=== PATIENT | female | born 1965 | race Caucasian/White ===

== ENCOUNTER → 2019-03-30 | Outpatient (CLI) | payer OTHER, SELFPAY ==
--- NOTE | 2019-03-30 14:52 | VDLE_ITS ---
Reason For Study: Acute embolism RIGHT LEFT GSV is normal. GSV is normal. CFV is compressible, spontaneous, phasic, CFV is compressible, spontaneous, phasic, competent and demonstrates normal competent, and demonstrates normal augmentation. augmentation. FV is compressible, spontaneous, phasic, FV is compressible, spontaneous, phasic, competent and demonstrates normal competent and demonstrates normal augmentation. augmentation. POP V is compressible, spontaneous, phasic, POP V is compressible, spontaneous, phasic, competent and demonstrates normal competent and demonstrates normal augmentation. augmentation. T/P Trunk is compressible. T/P Trunk is compressible. PTV is compressible. PTV is compressible. RT PerV is compressible. LT PerV is compressible. Procedure Exam performed in department. A preliminary report was called and/or faxed to Pedro. Interpretation Summary No evidence for acute deep venous thrombosis bilateral lower extremities with patent and compressible bilateral great saphenous veins. Ordering Physician: Carl Vasquez Referring Physician: MIRA Marinelli M.D. Performed By: Anjali Archibald RVT
== END | disposition home or self-care (01) ==
LOC: CVS 14:51
PROVIDERS: Family Provider Family Medicine; PCP Family Medicine; Referring Provider Dermatology; Visit Provider Dermatology
DX: I82.409 Acute embolism and thrombosis of unspecified deep veins of unspecified lower extremity (principal)
CPT/HCPCS: 93970

== ENCOUNTER → 2022-02-08 | Outpatient (CLI) | payer BC, SELFPAY ==
--- NOTE | 2022-02-08 07:51 | CT_ITS ---
STUDY: CTA HEAD AND NECK WITH CONTRAST REASON FOR EXAM: Female, 56 years old. PULSATILE TINNITUS RADIATION DOSAGE (If Supplied By Facility): CTDIvol = ( 26 ) mGy, DLP = ( 1299.5 ) mGycm TECHNIQUE: CT angiography was performed with a multi-detector CT scanner. Data acquisition was obtained from the skull base through the vertex following intravenous administration of IV 100mL [id number]-370. MIP images were reconstructed from the axial data set. Post-processing of the angiographic images was performed, with multiplanar reformation and 3D reconstruction. Individualized dose optimization techniques were used for this CT. COMPARISON: No relevant priors. FINDINGS: Normal bilateral petrous carotid arteries. Normal right cavernous carotid artery with a normal supraclinoid bifurcation. Normal left cavernous carotid artery with a normal supraclinoid bifurcation. Normal right A1 segments of the anterior cerebral artery. Normal left A1 segments of the anterior cerebral artery. Normal intact anterior communicating artery (ACOM). Normal bilateral A2 segments of the anterior cerebral arteries. Normal right M1 and M2 segments of the middle cerebral arteries, with a normal M1 bifurcation. Normal left M1 and M2 segments of the middle cerebral arteries, with a normal M1 bifurcation. Normal right posterior communicating artery (PCOM). Normal left posterior communicating artery (PCOM). Normal bilateral vertebral arteries. Normal basilar artery with a normal basilar bifurcation. The visualized bilateral superior cerebellar (SCA) arteries are normal. Normal bilateral P1, P2 and visualized P3 segments of the posterior cerebral arteries. There is no demonstrated aneurysm of the [place]. There is no demonstrated abnormality of the visualized brain. Heterogeneous appearance of the left lobe of the thyroid with hypoechoic nodules. Small hypoechoic nodules are also seen in the right lobe. AORTIC ARCH: Normal visualized aortic arch. Normal origins of the brachiocephalic, left common carotid, and left subclavian arteries. RIGHT CAROTID ARTERIES: Normal right common carotid artery (CCA). Normal right common carotid bulb. Normal origin of the right internal carotid (ICA) artery without a hemodynamically significant stenosis. Normal visualized cervical portion of the right internal carotid artery. Normal origin of the right external carotid artery (ECA). LEFT CAROTID ARTERIES: Normal left common carotid artery (CCA). Normal left common carotid bulb. Normal origin of the left internal carotid (ICA) artery without a hemodynamically significant stenosis. Normal visualized cervical portion of the left internal carotid artery. Normal origin of the left external carotid artery (ECA). VERTEBRAL ARTERIES: Normal bilateral vertebral arteries. CT/CTA Head AND Neck W/ Contrast IMPRESSION: Normal CTA Head and neck with contrast. Electronically Signed: Pelon Martin MD at 9:00 EDT ,
== END | disposition home or self-care (01) ==
PROVIDERS: PCP Family Medicine; Referring Provider Otolaryngology; Visit Provider Otolaryngology
DX: H93.A2 Pulsatile tinnitus, left ear (principal)
CPT/HCPCS: 70496; 70498; Q9967

== ENCOUNTER 2022-07-14 13:27 | Emergency (ER) | payer BC, SELFPAY ==
[2022-07-14 13:28] VITALS: BP 135/67; PULSE 100; RESP 18; TEMP 36.3; O2SAT 100; BMI 32.0
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
--- NOTE | 2022-07-14 15:24 | CT_ITS ---
EXAM: CT CERVICAL SPINE WITHOUT INTRAVENOUS CONTRAST CLINICAL INDICATION: Trauma TECHNIQUE: Helically acquired images were obtained of the cervical spine without intravenous contrast. 2D reformatted images were reviewed. This CT exam was performed using one or more of the following dose reduction techniques: automated exposure control, adjustment of the mA and/or kV according to patient size, and/or use of iterative reconstruction technique. This report was created using [employer] report generation technology. COMPARISON: None. FINDINGS: VERTEBRAE: Unremarkable. No fracture. No traumatic subluxation. No discrete lytic or blastic abnormality. Normal alignment. Normal craniocervical junction and cervicothoracic junction. DISCS/SPINAL CANAL/NEURAL FORAMINA: There is disc space narrowing at C5-6. SOFT TISSUES: Unremarkable. No prevertebral soft tissue swelling. LYMPH NODES: Unremarkable. No cervical adenopathy. LUNG APICES: Unremarkable as visualized. Clear. CT/Spine Cervical without Contras IMPRESSION: No acute findings in the cervical spine. Electronically Signed: Wilbert Roblero MD at 16:20 EST ,
--- NOTE | 2022-07-14 15:24 | CT_ITS ---
EXAM: CT HEAD WITHOUT INTRAVENOUS CONTRAST CLINICAL INDICATION: Trauma TECHNIQUE: Multiple axial images were obtained of the head without intravenous contrast. This CT exam was performed using one or more of the following dose reduction techniques: automated exposure control, adjustment of the mA and/or kV according to patient size, and/or use of iterative reconstruction technique. This report was created using [employer] report [employer] technology. COMPARISON: None. FINDINGS: BRAIN AND EXTRA-AXIAL SPACES: Unremarkable. No intra- or extra-axial hemorrhage. No evidence of acute infarct. No intracranial mass or mass effect. There is preservation of the miramontes/white matter interface. Posterior fossa structures are unremarkable. Ventricles are appropriate for age. No hydrocephalus. Basal cisterns are patent. BONES/JOINTS: Unremarkable. No discrete lytic or blastic abnormalities. SINUSES: Unremarkable as visualized. Clear. MASTOID AIR CELLS: Unremarkable. Clear. ORBITS: Visualized globes, extraocular muscles, optic nerves and retrobulbar fat appear unremarkable. CT/Brain/Head without Contrast IMPRESSION: Negative head/brain CT without intravenous contrast. Electronically Signed: Wilbert Roblero MD at 16:20 [facility] ,
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
--- NOTE | 2022-07-14 15:29 | NURSING ---
NO OLD EKGS
[2022-07-14 15:51] LABS: Absolute Lymphocyte Count 1.47 X10^3/uL (0.83-4.51); Absolute Neutrophil Count 5.5 X10^3/uL (2.0-7.7); Basophil# 0.04 X10^3/uL; Basophil% 0.5 % (0-1); Eosinophil# 0.06 X10^3/uL; Eosinophils% 0.8 % (0-5); Hematocrit 40.3 % (37-47); Hemoglobin 13.1 g/dL (12.0-15.0); Lymphocyte # 1.47 X10^3/ul (0.83-4.51); Lymphocyte % 18.8 % (19-41); Mean Corp Hgb Conc 32.5 g/dL (32-36); Mean Corpuscular Hgb 29.6 pg (27.0-32.0); Mean Corpuscular Volume 91.2 fL (81-99); Monocyte# 0.75 X10^3/uL; Monocyte% 9.6 % (0-10); NRBC Flagged by Analyzer 0 % (0-5); Neutrophil # 5.47 X10^3/uL (2.7-7.7); Neutrophil % 69.8 % (47-70); Platelet Count 264 K/mm3 (150-450); RBC Distribution Width CV 12.6 % (11.6-14.6); RBC Distribution Width SD 41.6 fl (35.1-43.9); Red Blood Count 4.42 M/mm3 (4.2-5.4); White Blood Count 7.8 K/mm3 (4.4-11.0)
[2022-07-14 16:07] VITALS: BP 124/76; PULSE 93; RESP 12; O2SAT 100
[2022-07-14 16:10] LABS: Anion Gap 2 (5-15); BUN 13 mg/dL (7-18); BUN/Creat Ratio 15.2 RATIO (10-20); Chloride 108 mmol/L (98-107); Creatinine, Serum 0.85 mg/dL (0.55-1.02); EST Glomerular Filtration Rate 73 mL/min (>60); Est Glom Filt Rate - Afr Amer 88 mL/min (>60); Estimated Creatinine Clearance 57.06 ml/min; Glucose 124 mg/dL (74-106); Potassium 3.6 mmol/L (3.5-5.1); Sodium Level 141 mmol/L (136-145); Troponin-I HS 8 pg/mL (3.0-54.0)
== END 2022-07-14 17:09 | disposition home or self-care (01) ==
PROVIDERS: Emergency Provider Student in an Organized Health Care Education/Training Program; PCP Family Medicine; Visit Provider Student in an Organized Health Care Education/Training Program
DX: S16.1XXA Strain of muscle, fascia and tendon at neck level, initial encounter (principal); S20.20XA Contusion of thorax, unspecified, initial encounter; V43.52XA Car driver injured in collision with other type car in traffic accident, initial encounter
CPT/HCPCS: 70450; 71250; 72125; 80048; 84484; 85025; 93005; 99285

== ENCOUNTER 2024-12-15 08:12 | Day surgery (SDC) | payer OTHER, SELFPAY ==
--- NOTE | 2024-12-09 13:16 | PAT.ANE_ITS ---
Pre-Assessment Diagnosis/Proposed Procedure Planned Operative Procedure(s): Exam Under Anesthesia and flexible sigmoidoscopy with biopsy Anesthesia History Anesthesia History - corporate analyst: Anesthesia History - corporate analyst Hx Hospitalization No 12/09/24 13:09 Any Problems With Anesthesia Yes: HARD TO WAKE AFTER 12/09/24 13:09 HYSTER Cholinesterase deficiency No 12/09/24 13:09 You/Your Family Experience No 12/09/24 13:09 fever (hyperthermia) with Relationship Recent Exposure to Contagious Disease Does patient have nerve No 12/09/24 13:09 stimulator Patient instructed to have device shut off --Does patient have Pacemaker or ICD? When Was Last Pacemaker Check QUESTION #4 FULL TEXT: You/Your Family Experience fever (hyperthermia) with Anesthesia Last Oral Intake Last Oral intake: Last Oral Intake NPO since Meds taken in AM with sips of water? Meds patient instructed to take am of surgery PONV PONV - corporate analyst: PONV - corporate analyst Female Yes 12/09/24 13:09 HX of Motion Sickness No 12/09/24 13:09 HX of N/V After Surgery No 12/09/24 13:09 Non-Smoker Yes 12/09/24 13:09 Duration of Surgery greater No 12/09/24 13:09 than 60 minutes Number of Risk Factors 2 12/09/24 13:09 PONV Score Moderate Risk 12/09/24 13:09 Height & Weight Height & Weight: Anesthesia: Height & Weight Height 5 ft 2 in 12/08/24 08:09 Respiratory Assessment Respiratory Assessment - corporate analyst: Respiratory Tract Infection Hx - corporate analyst Hx Respiratory Tract Infection No 12/09/24 13:09 STOP Sleep Apnea STOP Sleep Apnea - corporate analyst: STOP Sleep Apnea - corporate analyst Hx Hypertension No 12/09/24 13:09 Hx Sleep Apnea No 12/09/24 13:09 CPAP BIPAP Do you snore loudly (louder No 12/09/24 13:09 than talking or can be heard Do you often feel tired/ No 12/09/24 13:09 fatigued/ sleepy during daytime? Has anyone observed you stop No 12/09/24 13:09 breathing during sleep? STOP Results Negative 12/09/24 13:09 QUESTION #5 FULL TEXT : Do you snore loudly (louder than talking or can be heard through closed doors)? Tobacco Use History Tobacco Use History - corporate analyst: Tobacco Use History - corporate analyst Tobacco Use Smoking Status Never smoker 12/09/24 13:09 Hx Tobacco Use No 12/09/24 13:09 Years Smoking Packs Smoked per Day Smoking Cessation Date was within the last 15 years Hx Smoking Cessation Date Hx Smoking Cessation Counseling Hematologic Medial History Hematologic Hx - corporate analyst: Hematologic Medical Hx - education dean Hx of Blood Transfusion No 12/09/24 13:09 Hx of Transfusion in last 3 No 12/09/24 13:09 Months Date of Last Transfusion (if within last 3 months) Ever experience any problems No 12/09/24 13:09 with transfusion(s)? Specify any problems Hx of Preganancy in last 3 No 12/09/24 13:09 Months Nurse Filling Out Transfusion VCHRISTIN 12/09/24 13:09 & Questions: Date: 12/09/24 12/09/24 13:09 Time: 13:10 12/09/24 13:09 Patient unable to answer at this time (ie. 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 boulardii)) cholecalciferol (vitamin D3) 50 50 mcg PO QDAY 5 Unknown History mcg (2,000 unit) capsule clindamycin 1 %-benzoyl peroxide 5 1 applic topical QH S 12/08/24 Unknown History % topical gel with pump clobetasol 0.05 % topical ointment 1 applic topical BI D 12/08/24 Unknown History estradiol 0.01% (0.1 mg/gram) 1 appful vaginal .2-3 TI MES WEEKLY 12/08/24 Unknown History vaginal cream fluticasone propionate 50 1 spray intranasal DAILY Unknown History mcg/actuation nasal spray,suspension sumatriptan succinate 50 mg tablet 50 mg PO PRN PRN mi graine 12/08/24 Unknown History Allergy/AdvReac Type Severity Reaction Status Date / Time doxycycline Allergy Severe ITCHING Verified 12/09/24 13:00 minocycline Allergy Severe ITCHING Verified 12/09/24 13:00 Sulfa (Sulfonamide Allergy Rash Verified 12/09/24 12:59 Antibiotics) tetracycline AdvReac Itching Verified 12/09/24 12:59 Family History Mother Family history of blood clots Dementia Father Myocardial infarction, Onset Age: 78 Heart disease Hypertension Bowel disease, inflammatory Grandmother Breast cancer, Onset Age: 50 Grandfather Myocardial infarction Surgical History (Updated 12/09/24 @ 13:09 by Mikayla Hinkle) Hx of surgical procedure Hx of esophagogastroduodenoscopy Hx of wisdom tooth extraction Hx of hysterectomy History of bladder surgery Hx of colonoscopy Social History Smoking Status: Never smoker alcohol intake: never substance use type: does not use Audit: Pertinent Findings Pertinent Findings EKG Perinent findings: 07/14/2022. Normal sinus rhythm 88 bpm. Artifacts noted. Recommendation Anesthesia Recommendation Anesthesia recommendation: OPTIMIZED for anesthesia
[2024-12-15] VITALS (10 sets, daily range): BP systolic 115–141; BP diastolic 66–86; PULSE 72–95; RESP 16; TEMP 36.6–37.2; O2SAT 98–100; BMI 26.8
[2024-12-15] MEDS: Lactated Ringers 1,000 ML 15 ML IV (09:00)
--- NOTE | 2024-12-15 09:49 | PRE.ANES_ITS ---
ASA Classification* ASA Classification ASA Classification: 2 Assessment & Plan Anesthesia* Anesthesia Assessment Anesthesia Assessment: Discussed sedation and/or anesthesia options, risks, benefits, and alternatives with patient/parents/legal guardian/POA. Questions invited. The patient/parents/legal guardian/POA seems to understand and agrees to proceed with anesthesia plan. Reviewed the physical assessment, medical history, allergy history and patient home medications list prior to surgery/procedure/anesthetic and documented any changes. Performed airway and anesthesia risk assessments. Anesthesia Type Anesthesia Type: General History Source History Obtained from:: Patient and Chart Anesthesia Focused Assessment* Temperature: 98.9 F Pulse Rate: 88 Blood Pressure: 117/80 Respiratory Rate: 16 Pulse Ox: 100 Oxygen Delivery Method: Room Air Airway Assessment Mouth opens: >3 cm Mallampati Score: III Teeth Condition: Caps/Crowns (Patient has several crowns and an implant. They are all tight.) Neck Range of motion (ROM): Limited ROM (Slight decrease in extension.) Focused Labs Anesthesia Preop lab: CBC WBC 7.8 K/mm3 (4.4-11.0) 07/14/22 15:40 07/14/22 RBC 4.42 M/mm3 (4.2-5.4) 07/14/22 15:40 07/14/22 Hgb 13.1 g/dL (12.0-15.0) 07/14/22 15:40 07/14/22 Hct 40.3 % (37-47) 07/14/22 15:40 07/14/22 Plt Count 264 K/mm3 (150-450) 07/14/22 15:40 07/14/22 CHEMISTRY Potassium 3.6 mmol/L (3.5-5.1) 07/14/22 15:40 07/14/22 Sodium 141 mmol/L (136-145) 07/14/22 15:40 07/14/22 BUN 13 mg/dL (7-18) 07/14/22 15:40 07/14/22 Creatinine 0.85 mg/dL (0.55-1.02) 07/14/22 15:40 07/14/22 Glucose 124 mg/dL (74-106) H 07/14/22 15:40 07/14/22 COAG Pre-Assessment Diagnosis/Proposed Procedure Planned Operative Procedure(s): Exam Under Anesthesia and flexible sigmoidoscopy with biopsy Anesthesia History Anesthesia History - inspector electromechanical: Anesthesia History - inspector electromechanical Hx Hospitalization No 12/09/24 13:09 Any Problems With Anesthesia Yes: HARD TO WAKE AFTER 12/09/24 13:09 HYSTER Cholinesterase deficiency No 12/09/24 13:09 You/Your Family Experience No 12/09/24 13:09 fever (hyperthermia) with Relationship Recent Exposure to Contagious No 12/15/24 08:41 Disease Does patient have nerve No 12/09/24 13:09 stimulator Patient instructed to have device shut off --Does patient have Pacemaker No 12/15/24 08:41 or ICD? When Was Last Pacemaker Check QUESTION #4 FULL TEXT: You/Your Family Experience fever (hyperthermia) with Anesthesia Last Oral Intake Last Oral intake: Last Oral Intake NPO since 22:00 12/15/24 08:41 Meds taken in AM with sips of No 12/15/24 08:41 water? Meds patient instructed to take am of surgery PONV PONV - inspector electromechanical: PONV - inspector electromechanical Female Yes 12/09/24 13:09 HX of Motion Sickness No 12/09/24 13:09 HX of N/V After Surgery No 12/09/24 13:09 Non-Smoker Yes 12/09/24 13:09 Duration of Surgery greater No 12/09/24 13:09 than 60 minutes Number of Risk Factors 2 12/09/24 13:09 PONV Score Moderate Risk 12/09/24 13:09 Height & Weight Height & Weight: Anesthesia: Height & Weight Height 5 ft 2 in 12/15/24 08:41 Weight: 66.5 kg 12/15/24 08:41 Body Mass Index (BMI) 26.8 12/15/24 08:41 Respiratory Assessment Respiratory Assessment - inspector electromechanical: Respiratory Tract Infection Hx - inspector electromechanical Hx Respiratory Tract Infection No 12/09/24 13:09 STOP Sleep Apnea STOP Sleep Apnea - inspector electromechanical: STOP Sleep Apnea - inspector electromechanical Hx Hypertension No 12/09/24 13:09 Hx Sleep Apnea No 12/09/24 13:09 CPAP BIPAP Do you snore loudly (louder No 12/09/24 13:09 than talking or can be heard Do you often feel tired/ No 12/09/24 13:09 fatigued/ sleepy during daytime? Has anyone observed you stop No 12/09/24 13:09 breathing during sleep? STOP Results Negative 12/09/24 13:09 QUESTION #5 FULL TEXT : Do you snore loudly (louder than talking or can be heard through closed doors)? Tobacco Use History Tobacco Use History - inspector electromechanical: Tobacco Use History - inspector electromechanical Tobacco Use Smoking Status Never smoker 12/09/24 13:09 Hx Tobacco Use No 12/09/24 13:09 Years Smoking Packs Smoked per Day Smoking Cessation Date was within the last 15 years Hx Smoking Cessation Date Hx Smoking Cessation Counseling Hematologic Medial History Hematologic Hx - inspector electromechanical: Hematologic Medical Hx - international banker Hx of Blood Transfusion No 12/09/24 13:09 Hx of Transfusion in last 3 No 12/09/24 13:09 Months Date of Last Transfusion (if within last 3 months) Ever experience any problems No 12/09/24 13:09 with transfusion(s)? Specify any problems Hx of Preganancy in last 3 No 12/09/24 13:09 Months Nurse Filling Out Transfusion VCHRISTIN 12/09/24 13:09 & Questions: Date: 12/09/24 12/09/24 13:09 Time: 13:10 12/09/24 13:09 Patient unable to answer at this time (ie. confused, unrespo /Reproduction History /Reproductive History - inspector electromechanical: /Reproductive Hx- inspector electromechanical Hx Now No 12/09/24 13:09 Gestational Age (in weeks): EDC: Hx Hx Para Hx Section SAB No 12/09/24 13:09 Active Medications Active Medications: Current Medications Generic Name Dose Route Start Last Admin Trade Name Freq PRN Reason Stop Dose Admin Lactated Ringer's 1,000 mls @ 15 mls/hr 12/15/24 08:30 12/15/24 09:00 IV 15 mls/hr .Q48H CHARISSE Administration PFSH Medical History Wears contact lenses Wears glasses Post-menopausal Arthritis History of ulceration History of IBS Gastric reflux Non-smoker History of rectocele Hemorrhoids Constipation Blood in stool 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 boulardii)) cholecalciferol (vitamin D3) 50 50 mcg PO QDAY 5 Unknown History mcg (2,000 unit) capsule clindamycin 1 %-benzoyl peroxide 5 1 applic topical QH S 12/08/24 Unknown History % topical gel with pump clobetasol 0.05 % topical ointment 1 applic topical BI D 12/08/24 Unknown History estradiol 0.01% (0.1 mg/gram) 1 appful vaginal .2-3 TI MES WEEKLY 12/08/24 Unknown History vaginal cream fluticasone propionate 50 1 spray intranasal DAILY Unknown History mcg/actuation nasal spray,suspension sumatriptan succinate 50 mg tablet 50 mg PO PRN PRN mi graine 12/08/24 Unknown History Allergy/AdvReac Type Severity Reaction Status Date / Time doxycycline Allergy Severe ITCHING Verified 12/15/24 08:37 minocycline Allergy Severe ITCHING Verified 12/15/24 08:37 Sulfa (Sulfonamide Allergy Rash Verified 12/15/24 08:37 Antibiotics) tetracycline AdvReac Itching Verified 12/15/24 08:37 Family History Mother Family history of blood clots Dementia Father Myocardial infarction, Onset Age: 78 Heart disease Hypertension Bowel disease, inflammatory Grandmother Breast cancer, Onset Age: 50 Grandfather Myocardial infarction Surgical History Hx of surgical procedure Hx of esophagogastroduodenoscopy Hx of wisdom tooth extraction Hx of hysterectomy History of bladder surgery Hx of colonoscopy Social History Smoking Status: Never smoker alcohol intake: never substance use type: does not use Review of Systems (Anesthesia) ROS Narrative System reviewed and no additional complaints, except as documented.
--- NOTE | 2024-12-15 10:00 | LES_PTH ---
PATIENT: FATMATA BETTENCOURT LOC: EN U#:[id number] AGE/SX: 59/F ROOM: RE12/15/[address]: Dr. Du Carranza MD : 1965 BED: DIS: 12/15/2024 SPEC #: [id number] RECD: 12/15/24 14:53 STATUS: SOILA REAngelica #: [id number] WERO: 12/15/24 10:[address]: Du Carranza DEPT: SURGICAL PATHOLOGY RECD BY: Kade Kamara ENTERED: 12/15/24 15:27 SP TYPE: Lesion OTHR DR: Dr. Teofilo Lozano MD Tissues: A - Skin of anus Procedures: Immunohistochemical Stains Surgery Specimen Level IV IHC Stain ADDITIONAL HEADER OPERATION: Exam under anesthesia with biopsy and flexible sigmoidoscopy PRE-OP DIAGNOSIS: Squamous cell carcinoma of rectum TISSUE SUBMITTED: A- Anal lesion MICROSCOPIC DIAGNOSIS A. 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 * p16 positive. * p53 wild-type. MICROSCOPIC DESCRIPTION Slides are reviewed. All matched controls reacted appropriately. These tests were developed and their performance characteristics determined by [facility]. They may not have been cleared or approved by the U.S. Food and Drug Administration. The FDA has determined that such clearance or approval is not necessary. The above immunohistochemical/dualISH markers are ordered and reviewed by the Pathologist. GROSS DESCRIPTION A. Received in formalin in a container labeled with the patient's name, date of , and "anal lesion" is a 1.2 x 0.8 cm unoriented portion of glistening, possible mucosa with an excisional depth of up to 0.4 cm. The mae-pink mucosa exhibits an ill-defined, 0.9 x 0.4 x 0.4 cm papillary-nodular area situated approximately 0.1 cm from the peripheral margin. The deep margin is inked green. The specimen is trisected to reveal that the nodular area exhibits mae-pink cut surfaces that appear to abut the deep margin. Submitted entirely in A1. [facility] 12-15-2024 CPT:97915,43555,45184
--- NOTE | 2024-12-15 10:12 | HP.PCM_ITS ---
History and Physical Date of Admission: 12/15/24 Intake Vital Signs 07/14/2213:28 12/09/2507:09 Height 5 ft 2 in 5 ft 2 in Weight: 149 lb 6 oz BMI 27.3 BP 132/76 H Blood Pressure Location Rt brachial Position Sitting Respiration 18 Pulse 73 Pulse Source Monitor Temp 97.3 F L Temp Source Temporal Pulse Oximetry (%) 99 Oxygen Delivery Method room air Intake Visit Reasons: COLONOSCOPY Chief Complaint: cololonscopy Accompanied by: Is patient in pain?: No Allergies Sulfa (Sulfonamide Antibiotics) Allergy (Verified 12/08/24 08:10) Rashtetracycline Adverse Reaction (Verified 12/08/24 08:10) Itching Medications Medication Instructions Recorded Confirmed Type omeprazole 40 mg capsule,delayed 40 mg PO QDAY 11/27/24 12/08/24 History release Saccharomyces boulardii 250 mg 250 mg PO BID 12/08/24 12/08/24 History capsule (Daily Probiotic (S. boulardii)) cholecalciferol (vitamin D3) 50 50 mcg PO QDAY 12/08/24 12/08/24 History mcg (2,000 unit) capsule clindamycin 1 %-benzoyl peroxide 5 topical QHS 12/08/24 12/08/24 History % topical gel with pump clobetasol 0.05 % topical ointment topical BID 12/08/24 12/08/24 History estradiol 0.01% (0.1 mg/gram) vaginal 12/08/24 12/08/24 History vaginal cream fluticasone propionate 50 1 spray intranasal BID 12/08/24 12/08/24 History mcg/actuation nasal spray,suspension sumatriptan succinate 50 mg tablet 50 mg PO PRN migraine 12/08/24 12/08/24 History PFSH Medical History (Updated 12/08/24 @ 08:09 by Yessy Gallardo LPN) Hemorrhoids Constipation Blood in stool 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 Vitamin D deficiency GERD (gastroesophageal reflux disease) Anal cancer Rosacea Migraines Surgical History Hx of esophagogastroduodenoscopy Hx of wisdom tooth extraction Hx of hysterectomy History of bladder surgery Hx of colonoscopy Family History Mother Family history of blood clots DementiaFather Myocardial infarction, Onset Age: 78 Heart disease Hypertension Bowel disease, inflammatoryGrandmother Breast cancer, Onset Age: 50Grandfather Myocardial infarction Social History Smoking Status: Never smoker alcohol intake: never substance use type: does not use HPI HPI HPI: Patient is a 59-year-old female with anal carcinoma in situ. The patient had colonoscopy and there is a discrepancy in the report where the colonoscopy says it is in the proximal rectum and the pathology shows that it is at the dentate line. It came back with squamous cell carcinoma in situ without much basement membrane. More biopsies were recommended. ROS General General: Yes weight change (intentional weight loss ) and colon cancer; No appetite, fatigue, breast cancer or weakness HEENT HEENT: Yes difficulty swallowing; No eye injury, eye surgery, swollen glands or hoarseness Endo Endocrine: No thyroid disease, diabetes mellitus, thyroid cancer, Hair loss, heat intolerance or cold intolerance Skin Skin: No rash or changing moles Musc Musculoskeletal: Yes back problems and arthritis; No rheumatoid arthritis, gout or joint pain Cardio Cardiovascular: No murmur, pacemaker, heart disease, atrial fibrillation, high blood pressure, heart attack, heart stent, palpitations, shortness of breath with exertion or chest pain Psych Psychiatric: No depression, anxiety or hearing voices Resp Respiratory: No shortness of breath, No sleep apnea, No cough, No COPD, No asthma, No emphysema and No wheezing Gastro Gastrointestinal: No abdominal pain, No nausea or vomiting, No diarrhea, Yes constipation, Yes blood in stool, Yes acid reflux, Yes hemorrhoids, No ulcers, No gallbladder problem and No black,tarry stools Guy Hematologic: No blood thinners, No blood disorders, No bleeding, No anemia and No blood clots Neuro Neurologic: No numbness, No tingling and No weakness Exam Const General: cooperative Orientation: alert and oriented x3 HENMT Head: normal to inspection Neck Neck: normal visual inspection and full ROM Chest Chest palpation & inspection: normal inspection of the chest Resp Effort & Inspection: normal respiratory effort Auscultation: clear to auscultation bilaterally Cardio Rate: regular rate Rhythm: regular rhythm GI Inspection: non-distended Palpation: soft and nontender Skin General: no rashes or lesions noted Neuro General: patient alert and patient oriented x3 Extrem General: full ROM Psych Appearance: grossly normal Mental Status: mental status grossly normal Assessment and Plan Assessment and Plan (1) Squamous cell carcinoma of rectum: Status: Acute Plan: I did feel some irregularity anteriorly on rectal exam. It seems like a very small lesion. I would like to examine with a EUA. In case this is not the lesion I will also perform a flexible sigmoidoscopy to evaluate the proximal rectum to look for any lesions. I explained endoscopy in detail to the patient. I explained the risks including but not limited to stroke or heart attack with anesthesia, perforation of the GI tract, bleeding, infection. I explained that any of these could necessitate further emergency surgery. The patient understands and all questions were answered sufficiently. The patient wishes to proceed with procedure. Du Carranza MD Pager: [facility] [address] [place] [address], [address] [place] [address] Office: I have examined the patient and the H&P has been reviewed. There are no clinical changes since date of exam.
[2024-12-15] MEDS: Bupivacaine 0.5% PF 10 ML VIAL (11:15)
[2024-12-15] MEDS: Dibucaine 30 GM Tube 1 APPLIC (11:15)
--- NOTE | 2024-12-15 11:16 | OP.CCLET_ITS ---
12/15/2024 Teofilo Lozano Re : Flexible Sigmoidoscopy procedure for Yessy Aguirre Dear Marta This procedure was performed on Sunday, December 15, 2024. My impressions and recommendations are as follows: Impressions : - Friability with contact bleeding at the anus. - No specimens collected. Recommendations : My findings are described in the full procedure note, which is enclosed. If I can be of further assistance, please feel free to contact me at Doctor phone number(s): , Work: . Sincerely, Du Carranza MD 12/15/2024 11:15:55 AM This report has been signed electronically.
--- NOTE | 2024-12-15 11:16 | OP.FLEXSIG_ITS ---
Patient Name: Yessy Aguirre Procedure Date: 12/15/2024 10:19 AM Date of : 1965 Age: 59 Procedure: Flexible Sigmoidoscopy Indications: Suspected anal canal cancer Providers: Du Carranza MD Referring MD: Teofilo Lozano Medicines: General Anesthesia Patient Profile: This is a 59 year old female. Refer to note in patient chart for documentation of history and physical. Complications: No immediate complications. Estimated blood loss: Minimal. Procedure: Pre-Anesthesia Assessment: - Prior to the procedure, a History and Physical was performed, and patient medications and allergies were reviewed. The patient's tolerance of previous anesthesia was also reviewed. The risks and benefits of the procedure and the sedation options and risks were discussed with the patient. All questions were answered, and informed consent was obtained. Prior Anticoagulants: The patient has taken no anticoagulant or antiplatelet agents. After reviewing the risks and benefits, the patient was deemed in satisfactory condition to undergo the procedure. After obtaining informed consent, the endoscope was passed under direct vision. Throughout the procedure, the patient's blood pressure, pulse, and oxygen saturations were monitored continuously. The colonoscope was introduced through the anus and advanced to the rectum. The flexible sigmoidoscopy was accomplished without difficulty. The patient tolerated the procedure well. The quality of the bowel preparation was good. Findings: A localized area of moderately friable mucosa with contact bleeding was found at the anus. Impression: - Friability with contact bleeding at the anus. - No specimens collected. Procedure Code(s): --- Professional --- 39086, 52, Sigmoidoscopy, flexible; diagnostic, including collection of specimen(s) by brushing or washing, when performed (separate procedure) Diagnosis Code(s): --- Professional --- K62.5, Hemorrhage of anus and rectum CPT copyright 2021 [employer]. All rights reserved. The codes documented in this report are preliminary and upon asbestos remover review may be revised to meet current compliance requirements. Du Carranza MD 12/15/2024 11:15:55 AM This report has been signed electronically. Number of Addenda: 0 Note Initiated On: 12/15/2024 10:19 AM
--- NOTE | 2024-12-15 11:16 | PCM.OPRPT ---
Operative Report (Standard) Operative Information Date of Procedure: 12/15/24 Pre-Operative Diagnosis: Anal carcinoma in situ Post-Operative Diagnosis: Same Surgery/Procedure Performed: Exam under anesthesia with biopsy and flexible sigmoidoscopy skull chopper: Yes Bad Credit Collector: Devyn Dangelo Tasks completed by assistant maintenance manager: Retracting Type of Anesthesia: General/Regional RN Documented Start/Stop Times: Operation Date: 12/15/24 10:00 Case Time Into Pre-Op 12/15/24 08:17 Out of Pre-Op 12/15/24 10:34 Anesthesia Start 12/15/24 10:35 Into Room 12/15/24 10:35 Procedure Start 12/15/24 11:00 Procedure End 12/15/24 11:14 Procedure Start Time: 11:00 Procedure Stop Time: 11:14 Select all DRAINS/GRAFTS/IMPLANTS that apply: None Estimated Blood Loss: 5 Specimen collected: Yes Description of specimen(s) removed: Anal lesion Description of surgery: Patient was brought back to the operating room and general anesthesia was induced. Patient was placed in prone jackknife position. The buttocks were taped open. The perineal area was prepped and draped in usual sterile fashion. A well-lubricated finger was inserted into the anus and it was palpated. There was no palpable lesion or firm area. The speculum was placed into the anus and it was inspected. There was a small lesion noted that was friable. This lesion was resected using electrocautery. There was good hemostasis. The anal area was inspected once more and there were no other lesions that I could appreciate. Next the flexible sigmoidoscope was lubricated and placed into the anus. The rectum was inspected. There were no lesions in the proximal rectum. The scope was retroflexed and I carefully examined the anal canal. I did not see any other lesions in the anal canal. The scope was removed. Local anesthetic was injected surrounding the anus and then a Dibucaine soaked hemostatic gel pad was placed into the rectum and left there. Patient was awoken and taken to PACU in stable condition Surgical Findings: Anal lesion excised Complications Complications: No Admit VTE Documentation VTE Mechan Device Prophylaxis: SCD's
--- NOTE | 2024-12-15 11:21 | EX.PCM.DISCH ---
Discharge Instructions Procedure Rectal Surgery Diet Discharge Diet: Light diet - advance as tolerated (Pain medication may cause nausea. You should typically eat light foods as you take your pain medication.) Activity Discharge Activity: Return to Normal Activity and May Not Drive (while you are taking narcotic pain medications. Do not drive, work with heavy equipment or sign legal documents for 24 hours after your surgery.) May resume sexual activity in: No Restrictions Additional Activity Instructions:: Be aware that pain medications may cause nausea. You should typically eat light foods as you take your pain medications. Pain medications may also cause constipation, if you have difficulty with this please discuss with your doctor. Dressing / Incision Call your doctor if your incision/area has: Continuous Slow Oozing, Sudden Increased Bleeding, Increased Pain/ Swelling, Increased Redness, Foul Smelling Discharge and Swelling at the incision site Call your doctor if you observe: Fever of 101 or Higher and Uncontrolled pain Additional Dressing/Incision Instructions:: A local anesthetic plug was placed in the anal area, try not to expel for [address]ucaine ointment on the perianal area as needed. Sitz baths twice daily and after bowel movements. Follow Up Care Please Follow Up With: Du Carranza MD When: Please call to schedule 2 week follow up appointment. [phone] Test Results: Test results from this visit will be discussed in further detail at your follow-up appointment, if applicable. Discharge Plan Admission Attending Provider: Du Carranza Primary Care Provider: Teofilo Lozano Instructions Print Language: Wallisian Discharge Orders/Prescriptions Prescriptions: New oxycodone 5 mg tablet 5 - 10 mg PO Q6H PRN (Reason: pain) 5 Days Qty: 14 0RF No Action omeprazole 40 mg capsule,delayed release(DR/EC) 40 mg PO QDAY clindamycin-benzoyl peroxide 1-5 % gel with pump 1 applic topical QHS estradiol 0.01 % (0.1 mg/gram) cream 1 appful vaginal .2-3 TIMES WEEKLY clobetasol 0.05 % ointment 1 applic topical BID fluticasone propionate 50 mcg/actuation spray,suspension 1 spray intranasal DAILY sumatriptan succinate 50 mg tablet 50 mg PO PRN PRN (Reason: migraine) cholecalciferol (vitamin D3) 50 mcg (2,000 unit) capsule 50 mcg PO QDAY Saccharomyces boulardii [Daily Probiotic (S. boulardii)] 250 mg capsule 250 mg PO DAILY Referrals / Follow Up: Teofilo Lozano MD [Primary Care Provider] - Disposition Disposition (needs filled in before D/C Order can be placed): Home, Self Care
--- NOTE | 2024-12-15 11:38 | PCM.POST.ANE ---
Anesthesia: Postop Eval I Current Vital Signs Temperature: 98.1 F Pulse Rate: 94 Blood Pressure: 115/79 Respiratory Rate: 16 Pulse Ox: 100 Oxygen Delivery Method: Room Air Assessment Airway patent: Yes Spontaneous unlabored respirations: Yes Mental status: Awake and Calm nausea: No Vomiting: No Anesthesia Complication: No Fluid Hydration Crystalloid volume administer (ml): 300 Total IV fluid infused: 300 Progress Note Anesthesia document: Postop Eval 1 completed: Yes
--- NOTE | 2024-12-15 14:01 | POSTOPAN2_ITS ---
Anesthesia Postop Eval I Sum Postop Eval Completion status Anesthesia document: Postop Eval 1 completed: Yes Anesthesia Postop Eval I Summary Anesthesia Postop Eval I Summary: Anesthesia Postop Eval I: Assessment Summary Airway patent Yes 12/15/24 11:38 ACID CORRECTION HAND.[email or web address] Spontaneous unlabored Yes 12/15/24 11:38 ACID CORRECTION HAND.GDOTT respirations Mental status Awake,Calm 12/15/24 11:38 ACID CORRECTION HAND.GDOTT nausea No 12/15/24 11:38 ACID CORRECTION HAND.GDOTT Vomiting No 12/15/24 11:38 ACID CORRECTION HAND.GDOTT Anesthesia Postop Eval I: Fluid Summary Crystalloid volume administer 300 12/15/24 11:38 ACID CORRECTION HAND.GDOTT (ml) Colloids volume administered ( ml) Blood Product volume administered (ml) Total IV fluid infused 300 12/15/24 11:38 ACID CORRECTION HAND.GDOTT Anesthesia Postop Eval I: Summary Notes Anesthesia Complication No 12/15/24 11:38 ACID CORRECTION HAND.GDOTT Anesthesia Complication Comment: Post-operative progress note Anesthesia: Postop Eval II Evaluation Mental status: Awake and Calm Pain Level: 0 nausea: No Vomiting: No Complications Anesthesia Complication: No
--- NOTE | 2024-12-15 14:01 | PCM.POSTANE2 ---
Anesthesia Postop Eval I Sum Postop Eval Completion status Anesthesia document: Postop Eval 1 completed: Yes Anesthesia Postop Eval I Summary Anesthesia Postop Eval I Summary: Anesthesia Postop Eval I: Assessment Summary Airway patent Yes 12/15/24 11:38 LAB [email or web address].[email or web address] Spontaneous unlabored Yes 12/15/24 11:38 LAB TECHNOLOGIST.GDOTT respirations Mental status Awake,Calm 12/15/24 11:38 LAB TECHNOLOGIST.GDOTT nausea No 12/15/24 11:38 LAB TECHNOLOGIST.GDOTT Vomiting No 12/15/24 11:38 LAB TECHNOLOGIST.GDOTT Anesthesia Postop Eval I: Fluid Summary Crystalloid volume administer 300 12/15/24 11:38 LAB TECHNOLOGIST.GDOTT (ml) Colloids volume administered ( ml) Blood Product volume administered (ml) Total IV fluid infused 300 12/15/24 11:38 LAB TECHNOLOGIST.GDOTT Anesthesia Postop Eval I: Summary Notes Anesthesia Complication No 12/15/24 11:38 LAB [email or web address].GDOTT Anesthesia Complication Comment: Post-operative progress note Anesthesia: Postop Eval II Evaluation Mental status: Awake and Calm Pain Level: 0 nausea: No Vomiting: No Complications Anesthesia Complication: No
== END 2024-12-15 13:13 | disposition home or self-care (01) ==
LOC: EN 08:14 → AC 08:15
PROVIDERS: PCP Family Medicine; Referring Provider Surgery; Visit Provider Surgery
PROC: (CPT 45330; principal; 2024-12-15 09:45)
PROC: 0DJD8ZZ Inspection of Lower Intestinal Tract, Via Natural or Artificial Opening Endoscopic (ICD-10-PCS; CPT 45330; principal; 2024-12-15 09:55)
DX: D01.3 Carcinoma in situ of anus and anal canal (principal); K62.5 Hemorrhage of anus and rectum; K21.9 Gastro-esophageal reflux disease without esophagitis
CPT/HCPCS: 45330; 00811; 88305; 88341; 88342; J2405

== ENCOUNTER → 2025-01-21 | Outpatient (CLI) | payer OTHER, SELFPAY ==
--- NOTE | 2025-01-21 16:36 | CT_ITS ---
PROCEDURE: CT CHEST, ABD, PEL W/CONTRAST 01/21/2025 REASON FOR EXAM: ANAL CA- IV ONLY TECHNIQUE: Chest, abdomen and pelvis CT with intravenous contrast. Coronal and Sagittal reconstruction series were provided. One or more dose reduction techniques were used (e.g., Automated exposure control, adjustment of the mA and/or kV according to patient size, use of iterative reconstruction technique. PATIENT PREPARATION: Per protocol ORAL CONTRAST TYPE: None. AMOUNT: mL CONTRAST: Isovue 300 VOLUME: 95mL Gauge IV RADIATION DOSE SUMMARY: CTDlvol: 31 mGy DLP: 887 mGycm COMPARISON: Chest CT 07/14/2022 FINDINGS: Unremarkable base of neck and axilla. Normal esophagus. Normal heart size. No acute vascular pathology. No acute chest wall findings. The central airways are patent. No consolidation, effusion, or pneumothorax. On the left, series 2 images 72/76, there is a small cluster of nodular densities favoring postinflammatory etiology. On the right, no suspicious nodules. Multiple subcentimeter liver hypodensities favoring cysts. Attention on follow up imaging. Normal gallbladder, pancreas, spleen, adrenal glands, kidneys. No hydronephrosis. Normal bladder. Status post supracervical hysterectomy. No retroperitoneal or pelvic adenopathy. No free air. Nondistended bowel. Normal appendix. No acute large bowel findings. However, in the left perirectal region, series 3 image 94, and series 604 image 77, and series 605, image 89, there is a soft tissue density mass, involving the left lateral rectal wall, left vaginal cuff, and the pelvic floor muscles, measuring approximately 3.1 x 3.9 x 4.3 cm Lumbar spine degeneration. No acute abdominal wall findings. CT/CT Chest, Abd, Pel w/Contrast IMPRESSION: Left hemipelvic mass may represent primary rectal carcinoma, or confluence montserrat opathy. There is otherwise no evidence for chest abdomen or pelvic metastatic disease. Reading Location: [place] [id number]
== END | disposition home or self-care (01) ==
LOC: CT 16:36
PROVIDERS: PCP Family Medicine; Referring Provider Internal Medicine Medical Oncology; Visit Provider Internal Medicine Medical Oncology
DX: D01.3 Carcinoma in situ of anus and anal canal (principal)
CPT/HCPCS: 71260; 74177; Q9967

== ENCOUNTER → 2025-03-02 | Outpatient (CLI) | payer OTHER, SELFPAY ==
--- NOTE | 2025-03-02 10:30 | PET_ITS ---
PROCEDURE: PET/CT TUMOR BASE -THIGH INIT 03/02/2025 REASON FOR EXAM: 59 y/o F with COLORECTAL TECHNIQUE: Following the intravenous administration of radionucleotide, image acquisition on a dedicated PET/CT unit was performed at one hour post injection. A preliminary CT study encompassing the Skull base, neck, chest, abdomen, pelvis, and proximal thighs was performed for purposes of attenuation correction and anatomic localization. The proximal thighs were also included. The patient's blood glucose level was 69 mg/dL (allowable range: 50-180 mg/dL). RADIOPHARMACEUTICAL: 13.41 mCi 18F-FDG (Fluorodeoxyglucose F18) IV was injected into he patient. RADIATION DOSE SUMMARY: Effective Dose: Approximately 7 mSv for a standard whole-body PET scan Organ Doses: Varies by organ, with higher doses typically to the bladder, liver, and brain COMPARISON: COMPARISON FROM CT, PET OR OTHER PERTINENT EXAMS: Chest abdomen and pelvis CT of 01/21/2025. FINDINGS: Physiologic uptake: There may be expected metabolic uptake within the brain, tongue and floor of the mouth and larynx/vocal cords, heart, emeka (many normal individuals have hilar uptake in less than 3 nodes with mildly avid hilar nodes less than 2.7 SUV), liver and spleen, system, and GI tract and symmetric muscle uptake. FDG AVID AND NON-AVID LESIONS. Reported avid SUV values (g/mL*) are maximum SUV. NECK: There are no significant neck abnormalities. CHEST: Chest wall- There are no significant chest wall abnormalities. Axilla- There are no significant axillary abnormalities. Lung parenchyma- There are no significant lung parenchyma abnormalities. Mediastinum- There are no significant hilar or mediastinal adenopathy. Pleura- There are no significant pleural abnormalities. Densely calcified few small pulmonary nodules as well as splenic calcifications, consistent with old granulomatous disease. ABDOMEN: Stomach- No significant abnormalities. Liver- No significant abnormalities. Spleen- No significant abnormalities. Pancrease- No significant abnormalities. Kidneys- No significant abnormalities. Bowel- Normal bowel activity. Spine- No significant abnormalities. PELVIS: Bowel- Normal physiologic bowel activity is identified. Masses- A solid-appearing hypermetabolic left pelvic mass abuts the rectum in the left posterior uterus. SUV max is 11.3. This is concerning for malignancy. No additional focus of abnormal hypermetabolic activity is seen within the pelvis. Bones- Degenerative changes of the spine are seen. With the use of bone window settings, there are no osteolytic or osteoblastic lesions. There are no FDG avid lesions within the visualized portion of the axial skeleton. PET/PET/CT Tumor Base -Thigh Init IMPRESSION: FDG avid- 1. Hypermetabolic left pelvic mass as described. This is concerning for the pr esence of malignancy. 2. No additional focus of hypermetabolic activity is seen. Other: 1. Degenerative changes of the spine. 2. Densely calcified few small pulmonary nodules as well as splenic calcificati ons, consistent with old granulomatous disease. Please note the low-dose CT scan was performed to facilitate PET image reconstr uction and anatomic localization and does not replace a diagnostic CT. Any diagnostic CT requested and performed at the time of the PET will be reported separately. Reading Location: [id number]
== END | disposition home or self-care (01) ==
PROVIDERS: PCP Family Medicine
DX: C21.0 Malignant neoplasm of anus, unspecified (principal)
CPT/HCPCS: 78815; A9552

== ENCOUNTER 2025-03-25 12:04 | Day surgery (SDC) | payer OTHER, SELFPAY ==
[2025-03-25] VITALS (8 sets, daily range): BP systolic 96–119; BP diastolic 54–77; PULSE 72–87; RESP 16; TEMP 36.2–36.7; O2SAT 98–100; BMI 24.5
[2025-03-25] MEDS: Lactated Ringers 1,000 ML 15 ML IV (12:56)
--- NOTE | 2025-03-25 13:23 | PCM.HP.BLA ---
History and Physical Date of Admission: 03/25/25 Intake Vital Signs 03/17/2510:56 03/17/2511:40 03/18/2508:48 Height 5 ft 2 in 5 ft 2 in 5 ft 2 in Weight: 134 lb 2 oz 1346 lb BMI 24.5 246.1 BP 115/73 104/70 Blood Pressure Location Rt brachial Rt brachial Position Sitting Sitting Respiration 18 17 Pulse 83 77 Pulse Source Monitor Monitor Temp 98.6 F Pulse Oximetry (%) 100 100 Oxygen Delivery Method room air room air Intake Visit Reasons: PORT PLACEMENT Chief Complaint: port placement Is patient in pain?: No Allergies doxycycline Allergy (Severe, Verified 03/18/25 08:49) ITCHINGminocycline Allergy (Severe, Verified 03/18/25 08:49) ITCHINGSulfa (Sulfonamide Antibiotics) Allergy (Verified 03/18/25 08:49) Rashtetracycline Adverse Reaction (Verified 03/18/25 08:49) Itching Medications ?Medication ?Instructions ?Recorded ?Confirmed ?Type Saccharomyces boulardii 250 mg 250 mg PO DAILY 12/08/24 03/18/25 History capsule (Daily Probiotic (S. boulardii)) cholecalciferol (vitamin D3) 50 50 mcg PO QDAY 12/08/24 03/18/25 History mcg (2,000 unit) capsule clindamycin 1 %-benzoyl peroxide 5 1 applic topical QHS 12/08/24 03/18/25 History % topical gel with pump estradiol 0.01% (0.1 mg/gram) 1 appful vaginal .2-3 TIMES WEEKLY 12/08/24 03/18/25 History vaginal cream fluticasone propionate 50 1 spray intranasal DAILY 12/08/24 03/18/25 History mcg/actuation nasal spray,suspension sumatriptan succinate 50 mg tablet 50 mg PO PRN PRN migraine 12/08/24 03/18/25 History clobetasol 0.05 % topical ointment 1 applic topical .weekly 12/30/24 03/18/25 History peg 3350-electrolytes 236 ml PO DIRECTED PRN 12/30/24 03/18/25 History gram-22.74 gram-6.74 gram-5.86 gram solution zepeda extract supplement PO 03/18/25 03/18/25 History PFSH Medical History (Updated 03/18/25 @ 08:48 by Cierra Poole) Wears contact lenses Wears glasses Post-menopausal Arthritis History of ulceration History of IBS Gastric reflux Non-smoker History of rectocele Hemorrhoids Constipation Blood in stool 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 Vitamin D deficiency GERD (gastroesophageal reflux disease) Anal cancer Rosacea Migraines Surgical History H/O flexible sigmoidoscopy Hx of surgical procedure Hx of esophagogastroduodenoscopy Hx of wisdom tooth extraction Hx of hysterectomy History of bladder surgery Hx of colonoscopy Family History Mother Family history of blood clots DementiaFather Myocardial infarction, Onset Age: 78 Heart disease Hypertension Bowel disease, inflammatoryGrandmother Breast cancer, Onset Age: 50Grandfather Myocardial infarction Social History Smoking Status: Never smoker alcohol intake: never substance use type: does not use HPI HPI HPI: Patient is a 59-year-old female with anal carcinoma. Patient was found to have invasive anal carcinoma with lymph node involvement. She is here for port placement for chemotherapy. ROS General General: Yes weight change (intentional weight loss ) and colon cancer; No appetite, fatigue, breast cancer or weakness HEENT HEENT: Yes difficulty swallowing; No eye injury, eye surgery, swollen glands or hoarseness Endo Endocrine: No thyroid disease, diabetes mellitus, thyroid cancer, Hair loss, heat intolerance or cold intolerance Skin Skin: No rash or changing moles Musc Musculoskeletal: Yes back problems and arthritis; No rheumatoid arthritis, gout or joint pain Cardio Cardiovascular: No murmur, pacemaker, heart disease, atrial fibrillation, high blood pressure, heart attack, heart stent, palpitations, shortness of breath with exertion or chest pain Psych Psychiatric: No depression, anxiety or hearing voices Resp Respiratory: No shortness of breath, No sleep apnea, No cough, No COPD, No asthma, No emphysema and No wheezing Gastro Gastrointestinal: No abdominal pain, No nausea or vomiting, No diarrhea, Yes constipation, Yes blood in stool, Yes acid reflux, Yes hemorrhoids, No ulcers, No gallbladder problem and No black,tarry stools Guy Hematologic: No blood thinners, No blood disorders, No bleeding, No anemia and No blood clots Neuro Neurologic: No numbness, No tingling and No weakness Exam Const General: cooperative Orientation: alert and oriented x3 HENMT Head: normal to inspection Neck Neck: normal visual inspection and full ROM Chest Chest palpation & inspection: normal inspection of the chest Resp Effort & Inspection: normal respiratory effort Auscultation: clear to auscultation bilaterally Cardio Rate: regular rate Rhythm: regular rhythm GI Inspection: non-distended Palpation: soft and nontender Skin General: no rashes or lesions noted Neuro General: patient alert and patient oriented x3 Extrem General: full ROM Psych Appearance: grossly normal Mental Status: mental status grossly normal Assessment and Plan Assessment and Plan (1) Encounter for insertion of venous access port: Status: Acute Plan: I discussed right chest port placement with the patient in detail. I discussed the risks including but not limited to bleeding, infection, pneumothorax, line infection or DVT. Patient understands the risks and is willing to proceed. Du Carranza MD Pager: [facility] [address] [place] [address], [address] [place] [address] Office: I have examined the patient and the H&P has been reviewed. There are no clinical changes since date of exam.
--- NOTE | 2025-03-25 13:37 | PRE.ANES_ITS ---
ASA Classification* ASA Classification ASA Classification: 2 Assessment & Plan Anesthesia* Anesthesia Assessment Anesthesia Assessment: Discussed sedation and/or anesthesia options, risks, benefits, and alternatives with patient/parents/legal guardian/POA. Questions invited. The patient/parents/legal guardian/POA seems to understand and agrees to proceed with anesthesia plan. Reviewed the physical assessment, medical history, allergy history and patient home medications list prior to surgery/procedure/anesthetic and documented any changes. Performed airway and anesthesia risk assessments. Anesthesia Type Anesthesia Type: MAC History Source History Obtained from:: Patient and Chart Anesthesia Focused Assessment* Temperature: 98.1 F Pulse Rate: 87 Blood Pressure: 119/77 Respiratory Rate: 16 Pulse Ox: 100 Oxygen Delivery Method: Room Air Airway Assessment Mouth opens: >3 cm Mallampati Score: II Teeth Condition: Caps/Crowns (Patient has couple crowns. they are tight.) Neck Range of motion (ROM): Limited ROM (Slight Decrease) Labs Anesthesia Preop lab: CBC WBC 6.0 K/mm3 (4.4-11.0) 12/30/24 11:12/30/24 RBC 4.21 M/mm3 (4.2-5.4) 12/30/24 11:12/30/24 Hgb 12.7 g/dL (12.0-15.0) 12/30/24 11:12/30/24 Hct 38.0 % (37-47) 12/30/24 11:12/30/24 Plt Count 298 K/mm3 (150-450) 12/30/24 11:12/30/24 CHEMISTRY Potassium 4.2 mmol/L (3.3-5.1) 12/30/24 11:12/30/24 Sodium 139 mmol/L (133-145) 12/30/24 11:12/30/24 BUN 10 mg/dL (4-19) 12/30/24 11:12/30/24 Creatinine 0.90 mg/dL (0.70-1.20) 12/30/24 11:12/30/24 Glucose 109 mg/dL (70-99) H 12/30/24 11:12/30/24 COAG Pre-Assessment Diagnosis/Proposed Procedure Planned Operative Procedure(s): (R) Insertion, Vascular Port right poss left Anesthesia History Anesthesia History - hairspring 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 When Was Last Pacemaker Check QUESTION #4 FULL TEXT: You/Your Family Experience fever (hyperthermia) with Anesthesia Last Oral Intake Last Oral intake: Last Oral Intake NPO since 08:30 03/25/25 12:50 Meds taken in AM with sips of No 03/25/25 12:50 water? Meds patient instructed to take am of surgery Any additional information?: Yes NPO since: 08:30 (Patient had a glass of water 8:30 AM.) Meds taken in AM with sips of water?: No PONV PONV - hairspring truing inspector: PONV - hairspring truing inspector Female Yes 03/18/25 14:01 HX of Motion Sickness No 03/18/25 14:01 HX of N/V After Surgery No 03/18/25 14:01 Non-Smoker Yes 03/18/25 14:01 Duration of Surgery greater No 03/18/25 14:01 than 60 minutes Number of Risk Factors 2 03/18/25 14:01 PONV Score Moderate Risk 03/18/25 14:01 Height & Weight Height & Weight: Anesthesia: Height & Weight Height 5 ft 2 in 03/25/25 12:50 Weight: 60.7 kg 03/25/25 12:50 Body Mass Index (BMI) 24.5 03/25/25 12:50 Respiratory Assessment Respiratory Assessment - hairspring truing inspector: Respiratory Tract Infection Hx - hairspring truing inspector Hx Respiratory Tract Infection No 03/18/25 14:01 STOP Sleep Apnea STOP Sleep Apnea - hairspring truing inspector: STOP Sleep Apnea - hairspring truing inspector Hx Hypertension No 03/18/25 14:01 Hx Sleep Apnea No 03/18/25 14:01 CPAP BIPAP Do you snore loudly (louder No 03/18/25 14:01 than talking or can be heard Do you often feel tired/ No 03/18/25 14:01 fatigued/ sleepy during daytime? Has anyone observed you stop No 03/18/25 14:01 breathing during sleep? STOP Results Negative 03/18/25 14:01 QUESTION #5 FULL TEXT : Do you snore loudly (louder than talking or can be heard through closed doors)? Tobacco Use History Tobacco Use History - hairspring truing inspector: Tobacco Use History - hairspring truing inspector Tobacco Use Smoking Status Never smoker 03/18/25 14:01 Hx Tobacco Use No 03/18/25 14:01 Years Smoking Packs Smoked per Day Smoking Cessation Date was within the last 15 years Hx Smoking Cessation Date Hx Smoking Cessation Counseling Hematologic Medial History Hematologic Hx - hairspring truing inspector: Hematologic Medical Hx - collar starcher Hx of Blood Transfusion No 03/18/25 14:01 Hx of Transfusion in last 3 No 03/18/25 14:01 Months Date of Last Transfusion (if within last 3 months) Ever experience any problems No 03/18/25 14:01 with transfusion(s)? Specify any problems Hx of Preganancy in last 3 N/A 03/18/25 14:01 Months Nurse Filling Out Transfusion NBUCHER 03/18/25 14:01 & Questions: Date: 03/18/25 03/18/25 14:01 Time: 14:02 03/18/25 14:01 Patient unable to answer at this time (ie. confused, unrespo /Reproduction History /Reproductive History - hairspring truing inspector: /Reproductive Hx- hairspring truing inspector Hx Now No 03/18/25 14:01 Gestational Age (in weeks): EDC: Hx Hx Para Hx Section SAB No 03/18/25 14:01 Active Medications Active Medications: Current Medications Generic Name Dose Route Start Last Admin Trade Name Freq PRN Reason Stop Dose Admin Cefazolin Sodium 2 gm/ Sodium 110 mls @ 200 mls/hr 03/25/25 13:45 Chloride IV 03/25/25 14:17 INTRAOP ONE Lactated Ringer's 1,000 mls @ 15 mls/hr 03/25/25 12:30 03/25/25 12:56 IV 15 mls/hr .Q48H CHARISSE Administration PFSH Medical History Encounter for education Wears contact lenses Wears glasses Post-menopausal Arthritis History of ulceration History of IBS Gastric reflux Non-smoker History of rectocele Hemorrhoids Constipation Blood in stool 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 boulardii)) cholecalciferol (vitamin D3) 50 50 mcg PO QDAY 5 Unknown History mcg (2,000 unit) capsule clindamycin 1 %-benzoyl peroxide 5 1 applic topical QH S 12/08/24 Unknown History % topical gel with pump estradiol 0.01% (0.1 mg/gram) 1 appful vaginal .2-3X/W POARCH 12/08/24 Unknown History vaginal cream fluticasone propionate 50 1 spray intranasal DAILY Unknown History mcg/actuation nasal spray,suspension sumatriptan succinate 50 mg tablet 50 mg PO PRN PRN mi graine 12/08/24 Unknown History clobetasol 0.05 % topical ointment 1 applic topical QW POARCH 12/30/24 Unknown History digestive enzymes 1 cap PO DAILY 03/18/25 Unkn own History grape seed extract 100 mg capsule 400 mg PO DAILY 02/20 03/15 Unknown History polyethylene glycol 3350 17 8.5 g PO DAILY 03/18/25 Un known History gram/dose oral powder (Miralax) lidocaine-prilocaine 2.5 %-2.5 % 1 applic topical ONCE PRN port 03/23/25 Unknown Rx topical cream access 30 days #30 grams ondansetron 8 mg disintegrating 8 mg PO Q8H PRN nausea and 03/23/25 Unknown Rx tablet vomiting #30 tabs Allergy/AdvReac Type Severity Reaction Status Date / Time doxycycline Allergy Severe ITCHING Verified 03/25/25 12:47 minocycline Allergy Severe ITCHING Verified 03/25/25 12:47 Sulfa (Sulfonamide Allergy Rash Verified 03/25/25 12:47 Antibiotics) tetracycline AdvReac Itching Verified 03/25/25 12:47 Family History Mother Family history of blood clots Dementia Father Myocardial infarction, Onset Age: 78 Heart disease Hypertension Bowel disease, inflammatory Grandmother Breast cancer, Onset Age: 50 Grandfather Myocardial infarction Surgical History H/O flexible sigmoidoscopy Hx of surgical procedure Hx of esophagogastroduodenoscopy Hx of wisdom tooth extraction Hx of hysterectomy History of bladder surgery Hx of colonoscopy Social History Smoking Status: Never smoker alcohol intake: never substance use type: does not use Review of Systems (Anesthesia) ROS Narrative System reviewed and no additional complaints, except as documented.
[2025-03-25] MEDS: Midazolam 2 MG/2 ML Syringe IV (14:02)
[2025-03-25] MEDS: Cefazolin 1 GM/5 ML Vial 2 GM IV (14:04)
[2025-03-25] MEDS: fentaNYL 100 MCG/2 ML Ampul IV (14:10)
[2025-03-25] MEDS: Lidocaine 1% /Epi 1:100 (50ml) 50 ML VIAL (14:20)
--- NOTE | 2025-03-25 14:31 | PCM.OPRPT ---
Operative Report (Standard) Operative Information Date of Procedure: 03/25/25 Pre-Operative Diagnosis: Need for vascular access for chemotherapy Post-Operative Diagnosis: Same Surgery/Procedure Performed: Ultrasound and fluoroscopy guided right chest port placement utilizing right IJ big data engineer: No Type of Anesthesia: Local MAC RN Documented Start/Stop Times: Operation Date: 03/25/25 13:45 Case Time Into Pre-Op 03/25/25 12:15 Out of Pre-Op 03/25/25 13:55 Anesthesia Start 03/25/25 13:58 Into Room 03/25/25 13:58 Procedure Start 03/25/25 14:10 Procedure End 03/25/25 14:26 Anesthesia End 03/25/25 14:29 Out of Room 03/25/25 14:29 Procedure Start Time: 14:10 Procedure Stop Time: 14:26 Select all DRAINS/GRAFTS/IMPLANTS that apply: Implanted device Implanted device details: 8 [place] PowerPort Estimated Blood Loss: 5 Specimen collected: No Description of surgery: After obtaining informed consent patient was brought back to the operating room MAC anesthesia was induced and the right chest and neck were prepped in normal sterile fashion. Ultrasound was used to evaluate both IJs and the right IJ was selected. Next, using a needle, the right IJ was accessed and a guidewire was passed on into the superior vena cava under fluoroscopy guidance. A small incision was made over the puncture site and the dilator introducer was placed over the guidewire. Next this was capped and the pocket was made for the port. 1% lidocaine with epinephrine was injected in the proposed port site. An incision was made with scalpel. Electrocautery was used to make a pocket under the skin and subcutaneous tissue. Hemostasis was obtained. Next, the catheter was tunneled up to the neck incision site and placed through the introducer. The peel-away introducer was removed and the position of the catheter was confirmed on fluoroscopy. Next, the catheter was trimmed and attached to the port with the locking device. Interrupted 2-0 Vicryl sutures were used to anchor the port to the chest wall and then the port was placed inside the pocket. The pocket was then flushed with saline and the port irrigated with saline. There was good blood return and the port flushed easily. Next, heparin was injected into the port. The skin was closed with subcutaneous interrupted 3-0 Vicryl sutures. A single 3-0 Vicryl sutures placed under the skin at the neck incision site. Steri-Strips were placed as well as op sites. Patient tolerated procedure well, was taken to PACU in stable condition. Chest x-ray will be obtained. Surgical Findings: None Complications Complications: No Admit VTE Documentation VTE Mechan Device Prophylaxis: SCD's
--- NOTE | 2025-03-25 14:32 | DCINST_ITS ---
Discharge Instructions Procedure Port-A-Cath Diet Discharge Diet: Light diet - advance as tolerated (Pain medication may cause nausea. You should typically eat light foods as you take your pain medication.) Activity Discharge Activity: Return to Normal Activity and May Shower (with your bandage in place in 1-2 days after surgery. DO NOT SHOWER WHEN YOUR PORT IS ACCESSED.) Lifting Restrictions: 15 pounds for 2 days Additional Activity Instructions:: Alternate ibuprofen and Tylenol for pain control Dressing / Incision Call your doctor if your incision/area has: Continuous Slow Oozing, Sudden Increased Bleeding, Increased Pain/ Swelling, Increased Redness and Foul Smelling Discharge Call your doctor if you observe: Fever of 101 or Higher Remove Dressing in: 2 days Cleanse incision/area with: Soap & Water Follow Up Care Please Follow Up With: Du Carranza MD When: as needed [phone] Test Results: Test results from this visit will be discussed in further detail at your follow- up appointment, if applicable. Discharge Plan Admission Attending Provider: Du Carranza Primary Care Provider: Teofilo Lozano Instructions Print Language: Malay Discharge Orders/Prescriptions Prescriptions: No Action clindamycin-benzoyl peroxide 1-5 % gel with pump 1 applic topical QHS estradiol 0.01 % (0.1 mg/gram) cream 1 appful vaginal .2-3X/WEEK fluticasone propionate 50 mcg/actuation spray,suspension 1 spray intranasal DAILY sumatriptan succinate 50 mg tablet 50 mg PO PRN PRN (Reason: migraine) cholecalciferol (vitamin D3) 50 mcg (2,000 unit) capsule 50 mcg PO QDAY Saccharomyces boulardii [Daily Probiotic (S. boulardii)] 250 mg capsule 250 mg PO DAILY clobetasol 0.05 % ointment 1 applic topical QWEEK ondansetron 8 mg tablet,disintegrating 8 mg PO Q8H PRN (Reason: nausea and vomiting) Qty: 30 0RF lidocaine-prilocaine 2.5-2.5 % cream 1 applic topical ONCE PRN (Reason: port access) 30 Days Qty: 30 2RF grape seed extract 100 mg capsule 400 mg PO DAILY polyethylene glycol 3350 [Miralax] 17 gram/dose powder 8.5 g PO DAILY digestive enzymes Capsule 1 cap PO DAILY Rx Instructions: administer with food; swallow whole; do not crush/chew/dissolve/break/cut Referrals / Follow Up: Teofilo Lozano MD [Primary Care Provider] - Disposition Disposition (needs filled in before D/C Order can be placed): Home, Self Care
--- NOTE | 2025-03-25 14:33 | PCM.POST.ANE ---
Anesthesia: Postop Eval I Current Vital Signs Temperature: 97.4 F Pulse Rate: 82 Blood Pressure: 101/54 Respiratory Rate: 16 Pulse Ox: 100 Oxygen Delivery Method: Room Air Assessment Airway patent: Yes Spontaneous unlabored respirations: Yes Mental status: Awake and Calm nausea: No Vomiting: No Anesthesia Complication: No Fluid Hydration Crystalloid volume administer (ml): 300 Total IV fluid infused: 300 Progress Note Anesthesia document: Postop Eval 1 completed: Yes
--- NOTE | 2025-03-25 14:35 | RAD_ITS ---
PROCEDURE: CXR FOR LINE PLACEMENT 03/25/2025 REASON FOR EXAM: LINE PLACEMENT TECHNIQUE: Procedure Code: [id number] Modality: DX Procedure: CXR FOR LINE PLACEMENT COMPARISON: None FINDINGS: The tip of the right port a catheter is at the junction of the superior vena cava and right atrium. The lungs are clear. Scattered calcified granulomas. RAD/CXR for Line Placement IMPRESSION: The tip of the right port a catheter is at the junction of the superior vena ca va and right atrium. Reading Location: [id number]
--- NOTE | 2025-03-25 15:25 | POSTOPAN2_ITS ---
Anesthesia Postop Eval I Sum Postop Eval Completion status Anesthesia document: Postop Eval 1 completed: Yes Anesthesia Postop Eval I Summary Anesthesia Postop Eval I Summary: Anesthesia Postop Eval I: Assessment Summary Airway patent Yes 03/25/25 14:34 [email or web address] Spontaneous unlabored Yes 03/25/25 14:34 [email or web address] respirations Mental status Awake,Calm 03/25/25 14:34 [email or web address] nausea No 03/25/25 14:34 [email or web address] Vomiting No 03/25/25 14:34 [email or web address] Anesthesia Postop Eval I: Fluid Summary Crystalloid volume administer 300 03/25/25 14:34 [email or web address] (ml) Colloids volume administered ( ml) Blood Product volume administered (ml) Total IV fluid infused 300 03/25/25 14:34 [email or web address] Anesthesia Postop Eval I: Summary Notes Anesthesia Complication No 03/25/25 14:34 [email or web address] Anesthesia Complication Comment: Post-operative progress note Anesthesia: Postop Eval II Evaluation Mental status: Awake and Calm Pain Level: 0 nausea: No Vomiting: No Complications Anesthesia Complication: No
--- NOTE | 2025-03-25 15:25 | PCM.POSTANE2 ---
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.[email or web address] Spontaneous unlabored Yes 03/25/25 14:34 TEMPLATE LAYOUT WORKER.[email or web address] respirations Mental status Awake,Calm 03/25/25 14:34 TEMPLATE LAYOUT WORKER.[email or web address] nausea No 03/25/25 14:34 TEMPLATE LAYOUT WORKER.[email or web address] Vomiting No 03/25/25 14:34 TEMPLATE LAYOUT WORKER.[email or web address] Anesthesia Postop Eval I: Fluid Summary Crystalloid volume administer 300 03/25/25 14:34 TEMPLATE LAYOUT WORKER.[email or web address] (ml) Colloids volume administered ( ml) Blood Product volume administered (ml) Total IV fluid infused 300 03/25/25 14:34 TEMPLATE LAYOUT [email or web address] Anesthesia Postop Eval I: Summary Notes Anesthesia Complication No 03/25/25 14:34 TEMPLATE LAYOUT [email or web address] Anesthesia Complication Comment: Post-operative progress note Anesthesia: Postop Eval II Evaluation Mental status: Awake and Calm Pain Level: 0 nausea: No Vomiting: No Complications Anesthesia Complication: No
== END 2025-03-25 15:31 | disposition home or self-care (01) ==
LOC: SDC 12:04 → AC 12:06
PROVIDERS: PCP Family Medicine; Referring Provider Surgery; Visit Provider Surgery
PROC: (CPT 36561; principal; 2025-03-25 13:30)
DX: Z45.2 Encounter for adjustment and management of vascular access device (principal); C77.9 Secondary and unspecified malignant neoplasm of lymph node, unspecified; C21.0 Malignant neoplasm of anus, unspecified; K21.9 Gastro-esophageal reflux disease without esophagitis
CPT/HCPCS: 36561; 00532; 71045; 77001; C1788; J2405